=== PATIENT | male | born 1980 | race African-American/Black ===

== ENCOUNTER 2018-02-19 05:56 | Emergency (ER) | payer SELFPAY ==
[~2018-02-19] VITALS: Ht 170.2 cm; Wt 90.7 kg
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
[2018-02-19] MEDS: HALOPERIDOL 5 MG TABLET. PO ONE ×2 (06:28→06:30)
--- NOTE | 2018-02-19 07:43 | RAD ---
CT of the head without contrast, 02/19/2018: HISTORY: Altered mental status The ventricles are within normal limits in size. There is no shift of the midline structures. There is no evidence of acute intracranial hemorrhage or mass effect. The left frontal sinus is completely opacified. There is partial opacification of the left ethmoid sinus. A density along the floor of the left maxillary sinus is probably a retention cyst. IMPRESSION: 1. No acute intracranial abnormality is detected. 2. Left paranasal sinusitis. Electronically signed by: Mitchell Iraheta MD (02/19/2018 7:39 AM) [facility]
[2018-02-19 08:16] LABS: BASO % 1 % (0-3); EOS # 0.1 x10^3/uL (0.0-0.7); EOS % 3 % (0-3); HEMATOCRIT 39.6 % (39.0-53.0); HEMOGLOBIN 12.9 g/dL (13.0-17.5); LYMPH % 39 % (24-48); MEAN CORPUSCULAR HEMOGLOBIN 24 pg (25-35); MEAN CORPUSCULAR HGB CONC 33 g/dL (31-37); MEAN CORPUSCULAR VOLUME 73 fL (79-100); MONO # 0.5 x10^3/uL (0.0-1.1); MONO % 10 % (0-9); NEUT # 2.5 x10^3uL (1.8-7.7); NEUT % 48 % (31-73); PLATELET COUNT 281 x10^3/uL (140-400); RED BLOOD COUNT 5.45 x10^6/uL (4.30-5.70); RED CELL DISTRIBUTION WIDTH 14.8 % (11.5-14.5); WHITE BLOOD COUNT 5.3 x10^3/uL (4.0-11.0)
[2018-02-19 08:20] LABS: CALCIUM 9.3 mg/dL (8.5-10.1); GFR 101.2; POTASSIUM 3.7 mmol/L (3.5-5.1)
[2018-02-19 08:24] LABS: ACETAMIN < 2.0 mcg/ml (10-30); SALIC < 2.8 mg/dL (2.8-20.0)
[2018-02-19 08:26] LABS: ALBUMIN 3.6 g/dL (3.4-5.0); ALBUMIN/GLOBULIN RATIO 0.9 (1.0-1.7); TOTAL BILIRUBIN 1.4 mg/dL (0.2-1.0); TOTAL PROTEIN 7.4 g/dL (6.4-8.2)
[2018-02-19 08:30] LABS: BILIRUBIN,URINE SMALL (NEG); CLARITY,URINE CLEAR; COLOR,URINE AMBER; NITRITE,URINE NEGATIVE (NEG); PH,URINE 5.5; PROTEIN,URINE NEGATIVE (NEG-TRACE)
[2018-02-19 08:37] LABS: AMPHETAMINE/METHAMPHETAMINE NEG (NEG); BARBITURATES NEG (NEG); BENZODIAZEPINES NEG (NEG); CANNABINOIDS NEG (NEG); COCAINE NEG (NEG); METHADONE NEG (NEG); OPIATES NEG (NEG); PHENCYCLIDINE NEG (NEG)
[2018-02-19 08:41] LABS: RBC,URINE 0 /HPF (0-2); SQUAMOUS EPITHELIAL CELL,UR MOD /LPF
[2018-02-19 08:42] LABS: BACTERIA,URINE 0 /HPF (0-FEW); WBC,URINE OCC /HPF (0-4)
--- NOTE | 2018-02-19 09:01 | EKG ---
[facility] [address] [place] [id number] Test Date: 2018-02-19 Test Time: 07:57:22 Pat Name: AC WASHINGTON Department: Room: Gender: M [employer] Mechanician: : 1980 Requested By: JEF STRICKLAND Order Number: [id number] Reading MD: Measurements Intervals [place] Rate: 46 P: 67 VA: 164 QRS: 41 QRSD: 86 T: 35 QT: 464 QTc: 407 Interpretive Statements SINUS BRADYCARDIA NON SPECIFIC ST-T ABNORMALITY (ELEVATION) OTHERWISE NORMAL ECG No previous ECG available for comparison
[2018-02-19 09:38] VITALS: BP 106/71
== END 2018-02-19 10:50 | disposition home or self-care (01) ==
LOC: EEVIPCON 05:56 → ER 05:56
DX: Z00.00 Encounter for general adult medical examination without abnormal findings (principal); J32.8 Other chronic sinusitis; F17.210 Nicotine dependence, cigarettes, uncomplicated
CPT/HCPCS: 36415; 70450; 80053; 80307; 80329; 81001; 82962; 85025; 93005; 99284; G0480; G6039